=== PATIENT | female | born 1970 | race Caucasian/White ===

== ENCOUNTER 2017-08-14 17:32 | Emergency (ER) | payer OTHER, SELFPAY ==
[2017-08-14 17:49] VITALS: BP 129/82
[2017-08-14] MEDS ORDERED: Sodium Chloride 0.9% 10 ML Syringe FLUSH PRN (18:27)
[2017-08-14] MEDS ORDERED: Morphine 4 MG/ML Syringe IVPUSH PRN (18:27)
[2017-08-14] MEDS ORDERED: Sodium Chloride 0.9% 1,000 ML IV ONE (18:27)
[2017-08-14] MEDS ORDERED: Ondansetron 4 MG/2 ML SDV IVPUSH ONE (18:27)
--- NOTE | 2017-08-14 18:40 | EDM.PDOC ---
<Rajeev Cesar Jared - Last Filed: 08/14/17 19:06> ED HPI GENERAL MEDICAL PROBLEM - General Chief Complaint: Abdominal Pain Stated Complaint: VOMITING AND ABD PAIN Time Seen by Provider: 08/14/17 17:49 Source of Information: Reports: Patient History Limitations: Reports: No Limitations - History of Present Illness INITIAL COMMENTS - FREE TEXT/NARRATIVE: The patient is a 46-year-old female with a chief complaint of abdominal pain. She has a history of a gastric bypass that was done about 4 years ago. Over the past few weeks, she's had intermittent episodes of upper abdominal pain after eating. Previously, she would have vomiting and then the pain would resolve. However today the pain has been constant. The pain started this morning at around 10:30 after she ate some meatloaf for lunch. She's had multiple episodes of vomiting today, about 7 or 8 altogether. No hematemesis. She hasn't been able to tolerate liquids or solids since this morning. She continues to have upper abdominal pain that is constant and crampy. No relieving or exacerbating factors. No fever. No diarrhea. She did have a bowel movement this morning. No cough, chest pain, or shortness of breath. No urinary symptoms. Abdominal Pain Score (Numeric/FACES): 5 - Related Data Allergies Allergy/AdvReac Type Severity Reaction Status Date / Time shellfish derived Allergy Anaphylactic Verified 08/14/17 17:40 Shock ramipril [From Altace] AdvReac Arrhythmias Verified 08/14/17 17:40 Home Meds: Home Meds LORazepam [Ativan] 1 mg PO BEDTIME 12/04/14 [History] Metoprolol Tartrate 50 mg PO BID 12/04/14 [History] Lisinopril/Hctz. 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 Social & Family History - Tobacco Use Smoking Status *Q: Current Every Day Smoker Years of Tobacco use: 29 Packs/Tins Daily: 0.5 - Caffeine Use Caffeine Use: Reports: Soda - Alcohol Use Days Per Week of Alcohol Use: 0 - Recreational Drug Use Recreational Drug Use: Yes Recreational Drug Type: Reports: Marijuana/Hashish Recreational Drug Use Frequency: Not Used In Over 6 Months ED ROS GENERAL - Review of Systems Review Of Systems: See Below Constitutional: Denies: Fever HEENT: Reports: No Symptoms Respiratory: Denies: Shortness of Breath Cardiovascular: Denies: Chest Pain Endocrine: Reports: No Symptoms GI/Abdominal: Reports: Abdominal Pain, Nausea : Denies: Dysuria Musculoskeletal: Reports: No Symptoms Skin: Reports: No Symptoms Neurological: Reports: No Symptoms Psychiatric: Reports: No Symptoms Hematologic/Lymphatic: Reports: No Symptoms Immunologic: Reports: No Symptoms ED EXAM, GI/ABD - Physical Exam Exam: See Below Exam Limited By: No Limitations General Appearance: Alert, WD/WN, No Apparent Distress Eyes: Bilateral: Normal Appearance Ears: Normal External Exam Nose: Normal Inspection Throat/Mouth: Normal Inspection, Normal Voice, No Airway Compromise Head: Atraumatic, Normocephalic Neck: Normal Inspection, Supple, Non-Tender, Full Range of Motion Respiratory/Chest: No Respiratory Distress, Lungs Clear, Normal Breath Sounds, Chest Non-Tender Cardiovascular: Normal Peripheral Pulses, Regular Rate, Rhythm, No Edema, No Murmur GI/Abdominal Exam: Soft, No Distention, Other (+RUQ, epigastric, and LUQ TTP, no rebound/guarding) Back Exam: No: CVA Tenderness (L), CVA Tenderness (R) Extremities: Normal Inspection Neurological: Alert, Oriented, Normal Cognition, No Motor/Sensory Deficits Psychiatric: Normal Affect, Normal Mood Skin Exam: Warm, Dry, Intact, Normal Color, No Rash Course - Vital Signs Last Recorded V/S: Last Vital Signs Temp 36.0 C 08/14/17 17:42 Pulse 87 08/14/17 17:42 Resp 18 08/14/17 17:42 BP 129/82 08/14/17 17:42 Pulse Ox 96 08/14/17 17:42 Orthostatic Blood Pressure [ 116/79 Standing] Orthostatic Blood Pressure [ 121/81 Sitting] Orthostatic Blood Pressure [ 129/82 Supine] - Orders/Labs/Meds Orders: Active Orders 24 hr Category Date Time Status EKG 12 Lead [EKG Documentation Completion] [RC] STAT Care 08/14/17 18:26 Active Peripheral IV Care [RC] . DIRECTED Care 08/14/17 18:27 Active Abdomen 2V AP Flat Upright [CR] Stat Exams 08/14/17 18:27 Taken Morphine Med 08/14/17 18:27 Active 4 mg IVPUSH Q2H PRN Sodium Chloride 0.9% [Saline Flush] Med 08/14/17 18:27 Active 10 ml FLUSH ASDIRECTED PRN Peripheral IV Insertion Adult [OM.PC] Routine Oth 08/14/17 18:26 Ordered Medication Orders Morphine Sulfate (Morphine) 4 mg IVPUSH Q2H PRN PRN Reason: Pain Last Admin: 08/14/17 18:47 Dose: 4 mg Sodium Chloride (Saline Flush) 10 ml FLUSH ASDIRECTED PRN PRN Reason: Keep Vein Open Last Admin: 08/14/17 19:49 Dose: 10 ml Labs: Laboratory Tests 08/14/17 08/14/17 08/14/17 Range/Units 17:45 17:45 19:20 WBC 10.18 H (3.98-10.04) K/mm3 RBC 4.92 (3.98-5.22) M/mm3 Hgb 14.6 (11.2-15.7) gm/L Hct 41.7 (34.1-44.9) % MCV 84.8 (79.4-94.8) fl MCH 29.7 (25.6-32.2) pg MCHC 35.0 (32.2-35.5) g/dl RDW Std Deviation 38.7 (36.4-46.3) fL Plt Count 375 H (182-369) K/mm3 MPV 9.4 (9.4-12.3) fl Neut % (Auto) 77.0 H (34.0-71.1) % Lymph % (Auto) 15.5 L (19.3-51.7) % Will % (Auto) 6.9 (4.7-12.5) % Eos % (Auto) 0.3 L (0.7-5.8) Baso % (Auto) 0.1 (0.1-1.2) % Neut # (Auto) 7.84 H (1.56-6.13) K/mm3 Lymph # (Auto) 1.58 (1.18-3.74) K/mm3 Will # (Auto) 0.70 H (0.24-0.36) K/mm3 Eos # (Auto) 0.03 L (0.04-0.36) K/mm3 Baso # (Auto) 0.01 (0.01-0.08) K/mm3 Sodium 131 L (136-145) mEq/L Potassium 3.1 L (3.5-5.1) mEq/L Chloride 94 L (98-107) mEq/L Carbon Dioxide 28 (21-32) mEq/L Anion Gap 12.1 (5-15) BUN 11 (7-18) mg/dL Creatinine 0.8 (0.55-1.02) mg/dL Est Cr Clr Drug Dosing 81.38 mL/min Estimated GFR (MDRD) > 60 (>60) mL/min BUN/Creatinine Ratio 13.8 L (14-18) Glucose 135 H (74-106) mg/dL Calcium 9.1 (8.5-10.1) mg/dL Total Bilirubin 1.4 H (0.2-1.0) mg/dL AST 880 H (15-37) U/L ALT 455 H (14-59) U/L Alkaline Phosphatase 241 H (46-116) U/L Troponin I < 0.017 (0.00-0.056) ng/mL Total Protein 7.7 (6.4-8.2) g/dl Albumin 3.8 (3.4-5.0) g/dl Globulin 3.9 gm/dL Albumin/Globulin Ratio 1.0 (1-2) Lipase 139 (73-393) U/L Urine Color Yellow (Yellow) Urine Appearance Slt cloudy H (Clear) Urine pH 6.5 (5.0-8.0) Ur Specific Hudson 1.020 (1.005-1.030) Urine Protein 1+ H (Negative) Urine Glucose (UA) Negative (Negative) Urine Ketones Negative (Negative) Urine Occult Blood Negative (Negative) Urine Nitrite Negative (Negative) Urine Bilirubin 1+ H (Negative) Urine Urobilinogen 4.0 H (0.2-1.0) Ur Leukocyte Esterase Negative (Negative) Urine RBC 0-5 (0-5) /hpf Urine WBC 0-5 (0-5) /hpf Ur Epithelial Cells 5-10 H (0-5) /hpf Urine Bacteria Moderate H (FEW) /hpf Urine Mucus Few (FEW) /hpf Meds: Medications Generic Name Dose Route Start Last Admin Trade Name Freq PRN Reason Stop Dose Admin Morphine Sulfate 4 mg 08/14/17 18:27 08/14/17 18:47 Morphine IVPUSH 4 mg Q2H PRN Administration Pain Sodium Chloride 10 ml 08/14/17 18:27 08/14/17 19:49 Saline Flush FLUSH 10 ml ASDIRECTED PRN Administration Keep Vein Open Discontinued Medications Generic Name Dose Route Start Last Admin Trade Name Freq PRN Reason Stop Dose Admin Sodium Chloride 1,000 mls @ 1,000 mls/hr 08/14/17 18:27 08/14/17 18:47 Normal Saline IV 08/14/17 19:26 1,000 mls/hr ONETIME ONE Administration Potassium Chloride 10 meq/ 100 mls @ 100 mls/hr 08/14/17 19:18 08/14/17 19:48 Premix IV 08/14/17 20:17 100 mls/hr ONETIME STA Administration Ondansetron HCl 4 mg 08/14/17 18:27 08/14/17 18:47 Zofran IVPUSH 08/14/17 18:28 4 mg ONETIME ONE Administration - Re-Assessments/Exams Free Text/Narrative Re-Assessment/Exam: 08/14/17 18:39 Differential includes biliary disease, pancreatitis, obstruction, severe gastritis. Labs, x-ray, and ultrasound are pending. EKG shows normal sinus rhythm, no significant ST abnormality, T-wave inversions leads 3 and aVF, no prior available for comparison. Pain meds, Zofran, and IV fluid ordered. Patient will be signed out to Dr. Curry pending laboratory results and radiology results. 08/14/17 19:06 XR abd shows nonobstructive gas pattern. Labs show mildly elevated WBC at 11, and a transaminitis and mildly elevated bilirubin. RUQ U/S pending. Departure - Departure Disposition: Home, Self-Care 01 Clinical Impression: Acute cholecystitis - Discharge Information Referrals: Paige Singer MD [Primary Care Provider] - Jared Rios MD [Physician] - Forms: ED Department Discharge Additional Instructions: You were seen in the emergency room for upper abdominal pain, nausea, and vomiting. Workup in the ER included blood work, a urinalysis, an ECG, upright abdominal x- rays, and an ultrasound of your upper right abdomen. Based on your workup, your symptoms are MOST LIKELY due to a gallstone that is intermittently plugging your common bile duct. Your potassium was also found to be slightly low at 3.1. It is most important that you avoid fats, grease, and oils. Eating these will cause you to have abdominal pain. Stay well hydrated. Gatorade or Powerade are best. These drinks will also help replenish your potassium level. If you should have pain despite avoidance of fats, you may take 1-2 tablets of the narcotic pain reliever Jerusalem, up to every 8 hours, as needed. If you take Jerusalem, you may not drive for 10 hours afterwards. Jerusalem will likely cause constipation and nausea/vomiting. You may also dissolve one tablet of the anti-nausea medicine Zofran on your tongue up to every 8 hours, as needed for nausea/vomiting. Follow-up with the Surgeon Dr. Jared Rios this coming 08/17/2017, to arrange for an elective cholecystectomy (removal of your gallbladder). If any other problems, please do not hesitate to return to the ER. <Fei Curry - Last Filed: 08/14/17 21:54> Course - Re-Assessments/Exams Free Text/Narrative Re-Assessment/Exam: 08/14/17 19:14 Two-view AP flat and upright radiographs appear to demonstrate a nonspecific bowel gas pattern. Surgical clips are noticed in the epigastrium and left upper quadrant. A phlebolith is noticed in the left pelvis. Formal read per the Radiologist pending. 08/14/17 20:43 The patient's urinalysis is consistent with contamination. 08/14/17 21:29 Ultrasound of the right upper quadrant is read by Dr. Bueno as: 1. Gallstones within the gallbladder. Gallbladder wall is thickened but uncertain if this is real as the gallbladder is not well-distended. 2. Common bile duct is mildly dilated. Etiology for this finding not seen. CBD not seen in its entirety due to bowel gas. 3. No additional abnormality is appreciated. 08/14/17 21:[address] Rios at 21:32. He believes there is enough evidence to proceed with an elective cholecystectomy, however, not on a weekend. We will discharge the patient home with a prescription for pain medication, recommend avoidance of fatty foods, and she can follow-up with him this coming Thursday, . 08/14/17 21:42 The above was discussed with the patient. Her pain is minimal at this time. She will be discharged home with prescriptions for Jerusalem and Zofran via [facility]. Departure - Departure Time of Disposition: 21:42 Condition: Good
[2017-08-14] MEDS ORDERED: Potassium Chloride 10 MEQ in Premix Bag 1 BAG IV STA (19:18)
--- NOTE | 2017-08-14 21:02 | US ---
Limited abdominal ultrasound: Multiple real-time images of the upper right abdomen were obtained. Comparison: No prior ultrasound exam, prior CT study of 06/01/12 is available. Liver shows no focal parenchymal abnormality. Gallbladder not well distended. Gallstones are seen within the gallbladder. Gallbladder wall is thickened although uncertain if this is a real finding is the gallbladder is not well distended. No pericholecystic fluid is seen. Common bile duct is mildly dilated 1.1 cm. Etiology of the dilated duct is not appreciated on this study. Right kidney shows no hydronephrosis or mass. Pancreas is not completely seen. Visualized portions of the pancreas are unremarkable. Impression: 1. Gallstones within the gallbladder. Gallbladder wall is thickened but uncertain if this is real as the gallbladder is not well distended. 2. Common bile duct is mildly dilated. Etiology for this finding not seen. CBD not seen in its entirety due to bowel gas. 3. No additional abnormality is appreciated. Diagnostic code #3
--- NOTE | 2017-08-16 12:00 | CR ---
Abdomen: Supine and upright views of the abdomen were obtained. Comparison: No prior abdominal imaging. Bowel gas pattern appears within normal limits. Surgical clip is seen near the gastroesophageal junction as well as surgical clips within the left upper abdomen. Calcification is noted within the left side of the pelvis most likely due to large phlebolith. Bony structures appear within normal limits. Minimal scoliosis is noted. No free air is seen. Impression: 1. Incidental findings. Diagnostic code #2
== END 2017-08-14 22:01 | disposition home or self-care (01) ==
LOC: JD.ED 17:32
DX: K81.0 Acute cholecystitis (principal); F17.210 Nicotine dependence, cigarettes, uncomplicated; Z91.013 Allergy to seafood; Z88.8 Allergy status to other drugs, medicaments and biological substances; Z79.899 Other long term (current) drug therapy
CPT/HCPCS: 36415; 74020; 76705; 80053; 81001; 83690; 84484; 85025; 93005; 96361; 96365; 96375; 99285; J2270; J2405; J3480; J7040; J7050; 99284

== ENCOUNTER 2017-08-19 09:58 | Day surgery (SDC) | payer OTHER, SELFPAY ==
[~2017-08-19 09:58] MED LIST: Dexamethasone 4 MG/ML 5 ML MDV ONE; HYDROmorphone 1 MG/ML Syringe ONE; Ketorolac 30 MG/ML SDV ONE; Lactated Ringers 1,000 ML ONE; Lidocaine 1% 4 ML ONE; Lidocaine 1%/Sod Bicarbonate in NS 8.4% 1 ML Syringe IV PRN; Midazolam 1 MG/ML 2 ML SDV ONE; Ondansetron 4 MG/2 ML SDV ONE; Propofol 200 MG/20 ML SDV ONE; Rocuronium 50 MG/5 ML Vial ONE; Sodium Chloride 0.9% 10 ML Syringe FLUSH PRN; ceFAZolin 1 GM Vial ONE; fentaNYL 250 MCG/5 ML SDV ONE
[2017-08-19] MEDS: Lactated Ringers 1,000 ML IV SCH ×2 (10:25→12:05)
[2017-08-19] MEDS ORDERED: Lidocaine 1% with EPINEPHrine 1:100,000 20 ML MDV ONE (11:08)
[2017-08-19] MEDS ORDERED: Bupivacaine 0.5%/EPINEPHrine 1:200,000 50 ML MDV ONE (11:08)
--- NOTE | 2017-08-19 12:30 | PCM.PREANE ---
Preanesthetic Assessment - Anesthesia/Transfusion/Family Hx Anesthesia History: Prior Anesthesia Without Reaction Family History of Anesthesia Reaction: No Transfusion History: No Prior Transfusion(s) Intubation History: Unknown - Review of Systems General: No Symptoms, Fatigue, Appetite Pulmonary: No Symptoms (RASHAD no CPAP, smoking less 1 pack time 25 years) Cardiovascular: No Symptoms (HTN), Dyspnea on Exertion Gastrointestinal: No Symptoms (GERD/ history of gastric bypass), Decreased Appetite Neurological: Headache (History of migraines and brain surgery benign brain tumor/acromegaly), Tingling (left shoulder / arm due to laying on that side) Other: Reports: Thyroid Problems (hypothyroid), Neck Pain (February neck pain but improving), Depression, Anxiety - Physical Assessment NPO Status Date: 08/19/17 NPO Status Time: 07:15 Pulse: 76 O2 Sat by Pulse Oximetry: 95 Respiratory Rate: 18 Blood Pressure: 126/86 Temperature: 37.1 C Vital Signs: Last Vital Signs Temp 37.1 C 08/19/17 10:05 Pulse 76 08/19/17 10:05 Resp 18 08/19/17 10:05 BP 126/86 08/19/17 10:05 Pulse Ox 95 08/19/17 10:05 Height: 1.68 m Weight: 89.358 kg ASA Class: 3 Mental Status: Alert & Oriented x3 Airway Class: Mallampati = 3 Dentition: Reports: Dentures (upper), Partial (bottom) Thyro-Mental Finger Breadths: 3 Mouth Opening Finger Breadths: 3 ROM/Head Extension: Full Lungs: Clear to Auscultation, Normal Respiratory Effort Cardiovascular: Regular Rate, Regular Rhythm, No Murmurs - Lab Values: Laboratory Last Values Sodium 136 mEq/L (136-145) 08/19/17 10:25 Potassium 3.3 mEq/L (3.5-5.1) L 08/19/17 10:25 Chloride 96 mEq/L (98-107) L 08/19/17 10:25 Carbon Dioxide 28 mEq/L (21-32) 08/19/17 10:25 Anion Gap 15.3 (5-15) H 08/19/17 10:25 BUN 12 mg/dL (7-18) 08/19/17 10:25 Creatinine 0.8 mg/dL (0.55-1.02) 08/19/17 10:25 Est Cr Clr Drug Dosing 81.38 mL/min 08/19/17 10:25 Estimated GFR (MDRD) > 60 mL/min (>60) 08/19/17 10:25 BUN/Creatinine Ratio 15.0 (14-18) 08/19/17 10:25 Glucose 101 mg/dL (74-106) 08/19/17 10:25 Calcium 9.4 mg/dL (8.5-10.1) 08/19/17 10:25 Total Bilirubin 1.1 mg/dL (0.2-1.0) H 08/19/17 10:25 AST 107 U/L (15-37) H 08/19/17 10:25 ALT 223 U/L (14-59) H 08/19/17 10:25 Alkaline Phosphatase 377 U/L (46-116) H 08/19/17 10:25 Total Protein 7.9 g/dl (6.4-8.2) 08/19/17 10:25 Albumin 3.9 g/dl (3.4-5.0) 08/19/17 10:25 Globulin 4.0 gm/dL 08/19/17 10:25 Albumin/Globulin Ratio 1.0 (1-2) 08/19/17 10:25 Above labs reviewed and noted. - Imaging/EKG Impressions: EKG: No acute changes with no evidence of acute STEMI, or injury. SR 81, old anteroseptal infarct. - Allergies Allergies/Adverse Reactions: Allergies Allergy/AdvReac Type Severity Reaction Status Date / Time shellfish derived Allergy Anaphylactic Verified 08/14/17 17:40 Shock ramipril [From Altace] AdvReac Arrhythmias Verified 08/14/17 17:40 - Anesthesia Plan Beta Leslie: Metoprolol Med Last Dose Date: 08/19/17 Med Last Dose Time: 07:15 - Acknowledgements Anesthesia Type Planned: General Anesthesia Pt an Appropriate Candidate for the Planned Anesthesia: Yes Alternatives and Risks of Anesthesia Discussed w Pt/Guardian: Yes Pt/Guardian Understands and Agrees with Anesthesia Plan: Yes PreAnesthesia Questionnaire Cardiovascular History: Reports: High Cholesterol, 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: Psychiatric History: Reports: Anxiety - Past Surgical History GI Surgical History: Reports: Bariatric Procedure Endocrine Surgical History: Reports: Pituitary Tumor Resection, Other (See Below ) Other Endocrine Surgeries/Procedures: 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 - SUBSTANCE USE Smoking Status *Q: Current Every Day Smoker Tobacco Use Within Last Twelve Months: Cigarettes Days Per Week of Alcohol Use: 0 Recreational Drug Use History: Yes Recreational Drug Type: Reports: Marijuana/Hashish - HOME MEDS Home Medications: Home Meds LORazepam [Ativan] 1 mg PO BID PRN 12/04/14 [History] Metoprolol Tartrate 100 mg PO BID 12/04/14 [History] Simvastatin [Zocor] 10 mg PO BEDTIME 08/14/17 [History] Hydrocodone/Acetaminophen [Hydrocodon-Acetaminophen 5-325] 1 - 2 tab PO Q4HR PRN 08/19/17 [History] Lisinopril/Hydrochlorothiazide [Lisinopril-Hctz 20-12.5 mg Tab] 1 tab PO BID [History] valACYclovir [Valtrex] 4 tab PO BID PRN 08/19/17 [History] - CURRENT (IN HOUSE) MEDS Current Meds: Current Medications Lactated Ringer's (Ringers, Lactated) 1,000 mls @ 125 mls/hr IV ASDIRECTED RODGER Last Admin: 08/19/17 12:05 Dose: 125 mls/hr Lidocaine/Sodium Bicarbonate (Buffered Lidocaine 1% In Ns 8.4%) 0.25 ml IV ONETIME PRN PRN Reason: Prior to IV Start Last Admin: 08/19/17 10:25 Dose: 0.25 ml Sodium Chloride (Saline Flush) 10 ml FLUSH ASDIRECTED PRN PRN Reason: Keep Vein Open Discontinued Medications Bupivacaine HCl/Epinephrine Bitart (Marcaine 0.5%/Epinephrine 1:200,000) Confirm Administered Dose 50 ml .ROUTE .STK-MED ONE Stop: 08/19/17 11:09 Cefazolin Sodium (Ancef) Confirm Administered Dose 2 gm .ROUTE .STK-MED ONE Stop: 08/19/17 07:27 Dexamethasone (Dexamethasone) Confirm Administered Dose 20 mg .ROUTE .STK-MED ONE Stop: 08/19/17 07:27 Fentanyl (Sublimaze) Confirm Administered Dose 250 mcg .ROUTE .STK-MED ONE Stop: 08/19/17 07:28 Hydromorphone HCl (Dilaudid) Confirm Administered Dose 1 mg .ROUTE .STK-MED ONE Stop: 08/19/17 07:27 Lidocaine HCl (Xylocaine-Mpf 1%) Confirm Administered Dose 4 mls @ as directed .ROUTE .ST-MED ONE Stop: 08/19/17 07:27 Lactated Ringer's (Ringers, Lactated) Confirm Administered Dose 1,000 mls @ as directed .ROUTE .STK-MED ONE Stop: 08/19/17 07:27 Ketorolac Tromethamine (Toradol) Confirm Administered Dose 30 mg .ROUTE .ST- MED ONE Stop: 08/19/17 07:27 Lidocaine/Epinephrine (Xylocaine 1% With Epinephrine 1:100,000) Confirm Administered Dose 20 ml .ROUTE .ST-MED ONE Stop: 08/19/17 11:09 Midazolam HCl (Versed 1 Mg/Ml) Confirm Administered Dose 2 mg .ROUTE .ST-MED ONE Stop: 08/19/17 07:28 Ondansetron HCl (Zofran) Confirm Administered Dose 4 mg .ROUTE .ST-MED ONE Stop: 08/19/17 07:27 Propofol (Diprivan 20 Ml) Confirm Administered Dose 200 mg .ROUTE .STK-MED ONE Stop: 08/19/17 07:28 Rocuronium [place] (Zemuron) Confirm Administered Dose 50 mg .ROUTE .ST-MED ONE Stop: 08/19/17 07:27
[2017-08-19] MEDS ORDERED: ePHEDrine 50 MG/ML SDV IVPUSH PRN (12:59)
[2017-08-19] MEDS ORDERED: HYDROmorphone 0.5 MG/0.5 ML Syringe IVPUSH PRN (12:59)
[2017-08-19] MEDS ORDERED: Ondansetron 4 MG/2 ML SDV IVPUSH PRN (12:59)
[2017-08-19] MEDS ORDERED: Midazolam 1 MG/ML 2 ML SDV IVPUSH PRN (12:59)
[2017-08-19] MEDS ORDERED: Phenylephrine 1 MG in Sodium Chloride 0.9% 10 ML IV SCH (13:00)
[2017-08-19] MEDS ORDERED: Phenylephrine/Normal Saline 100 MCG/ML 10 ML Syringe ONE (13:17)
[2017-08-19] MEDS: Potassium Chloride 10 MEQ in Premix Bag 1 BAG IV SCH ×2 (13:31→14:50)
[2017-08-19] MEDS ORDERED: Neostigmine Methylsulfate 1 MG/ML 5 ML Syringe ONE (14:13)
--- NOTE | 2017-08-19 14:38 | PCM.OPNOTE ---
- General Post-Op/Procedure Note Date of Surgery/Procedure: 08/19/17 Operative Procedure(s): Laparoscopic cholecystectomy Findings: Chronically inflamed gallbladder with multiple cholesterol type gallstones and a dilated cystic duct Pre Op Diagnosis: Cholecystitis secondary to cholelithiasis Post-Op Diagnosis: Same Anesthesia Technique: General ET Tube, Local Primary Surgeon: Levy Gonzales Pathology: Gallbladder with stones EBL in mLs: 5 Complications: None Condition: Good Free Text/Narrative:: After adequate general endotracheal tube anesthesia was obtained the patient was monitored and her abdomen prepped and draped for a cholecystectomy. A supraumbilical incision was made after local analgesia was given with a 15 blade down to the midline. This structure was opened with a 15 blade entering the abdomen under direct vision. A 12 mm camera port was inserted. CO2 pneumoperitoneum was obtained. 3--5 mm working ports were placed along the right subcostal margin after local analgesia. There were adhesions between the gallbladder and the greater omentum. The gallbladder was distended and I had to aspirate it of its contents which contained green bile. There was no pus. I grasped the dome of the gallbladder and retracted it and a liver in a cephalad direction. I used the cautery to remove the adhesions between the omentum and the body of the gallbladder. The gallbladder was indurated. There was a 1 cm lymph node overlying calot's triangle which I dissected away. I used a combination of cautery and suction dissector to identify the structures in calot 's triangle. I used the linear stapler to fire across the dilated cystic duct and ampulla. I then took the gallbladder down in a retrograde fashion with cautery. The gallbladder was placed in the specimen bag and removed through the umbilicus. I opened The gallbladder on the back table and itcontained yellow gallstones and no common bile duct. I irrigated out the gallbladder bed with saline. There was no obvious bile duct leak. CO2 pneumoperitoneum was completely released at the umbilicus and then I closed this area with a figure- of-eight 0 Vicryl. The subcutaneous tissues and skin were closed with Vicryl as well. Steri-Strips and gauze were used for the dressing. There were no procedural complications. Speech And Language Clinician photographs were taken for the patient and for the medical record. The patient was taken extubated to the recovery area in stable condition.
[2017-08-19] MEDS: fentaNYL 100 MCG/2 ML SDV IVPUSH PRN ×2 (14:43→15:25)
--- NOTE | 2017-08-19 14:46 | PCM.POSTAN ---
POST ANESTHESIA ASSESSMENT - MENTAL STATUS Mental Status: Alert - VITAL SIGNS Pulse Rate: 102 SaO2: 94 Resp Rate: 11 Blood Pressure: 134/78 Temperature: 36.1 C - RESPIRATORY Respiratory Status: Respiratory Rate WNL, Airway Patent, O2 Saturation Stable, Supplemental Oxygen - CARDIOVASCULAR CV Status: Pulse Rate WNL, Blood Pressure Stable - GASTROINTESTINAL GI Status: No Symptoms - POST OP HYDRATION Hydration Status: Adequate & Stable
[2017-08-19] MEDS ORDERED: Potassium Chloride 20 MEQ Tab.ER PO ONE (15:00)
--- NOTE | 2017-08-19 15:43 | PCM48HPAN ---
Post Anesthesia Note - EVALUATION WITHIN 48HRS OF ANESTHETIC Vital Signs in Normal Range: Yes Patient Participated in Evaluation: Yes Respiratory Function Stable: Yes Airway Patent: Yes Cardiovascular Function Stable: Yes Hydration Status Stable: Yes Pain Control Satisfactory: Yes Nausea and Vomiting Control Satisfactory: Yes Mental Status Recovered: Yes
[2017-08-19] MEDS ORDERED: Ketorolac 30 MG/ML SDV IM ONE (17:15)
[2017-08-19] MEDS ORDERED: HYDROmorphone 1 MG/ML Syringe IVPUSH ONE (17:16)
[2017-08-19 19:58] VITALS: BP 142/86
== END 2017-08-19 19:16 | disposition home or self-care (01) ==
LOC: JD.SDS 09:58
PROVIDERS: ATTEND Surgery
DX: K80.10 Calculus of gallbladder with chronic cholecystitis without obstruction (principal); I10 Essential (primary) hypertension; E78.00 Pure hypercholesterolemia, unspecified; F41.9 Anxiety disorder, unspecified; G47.33 Obstructive sleep apnea (adult) (pediatric); Z98.84 Bariatric surgery status; Z98.890 Other specified postprocedural states; F17.210 Nicotine dependence, cigarettes, uncomplicated; Z91.013 Allergy to seafood; Z88.8 Allergy status to other drugs, medicaments and biological substances; Z79.899 Other long term (current) drug therapy
CPT/HCPCS: 36415; 47562; 80053; 84132; A9270; J0690; J1100; J1170; J1885; J2250; J2405; J2710; J3010; J3480; J7120; 00790; J2704

== ENCOUNTER 2017-10-07 08:51 | Emergency (ER) | payer OTHER ==
[2017-10-07] MEDS ORDERED: Sodium Chloride 0.9% 10 ML Syringe FLUSH PRN (09:34)
[2017-10-07] MEDS ORDERED: HYDROmorphone 0.5 MG/0.5 ML Syringe IVPUSH STA (10:16)
[2017-10-07] MEDS ORDERED: HYDROmorphone 0.5 MG/0.5 ML Syringe IVPUSH ONE (11:52)
--- NOTE | 2017-10-07 11:58 | EDM.PDOC ---
ED HPI GENERAL MEDICAL PROBLEM - General Chief Complaint: Lower Extremity Injury/Pain Stated Complaint: [facility] Time Seen by Provider: 10/07/17 09:34 Source of Information: Reports: Patient, RN Notes Reviewed - History of Present Illness INITIAL COMMENTS - FREE TEXT/NARRATIVE: 46 year old female slipped on ice, came down hard on R knee. Severe R knee pain, unable to extend knee or bear wt, no other pain or injury. Right Knee Pain Score (Numeric/FACES): 8 - Related Data Allergies Allergy/AdvReac Type Severity Reaction Status Date / Time shellfish derived Allergy Anaphylactic Verified 10/07/17 15:17 Shock ramipril [From Altace] AdvReac Arrhythmias Verified 10/07/17 15:17 Home Meds: Home Meds LORazepam [Ativan] 1 mg PO BEDTIME PRN 12/04/14 [History] Metoprolol Tartrate 100 mg PO BID 12/04/14 [History] Simvastatin [Zocor] 10 mg PO BEDTIME 08/14/17 [History] Lisinopril/Hydrochlorothiazide [Lisinopril-Hctz 20-12.5 mg Tab] 1 tab PO BID [History] Cephalexin [Keflex] 500 mg PO TID 10/07/17 [History] Cyclobenzaprine [Flexeril] 10 mg PO ASDIRECTED 10/08/17 [History] Morphine Sulfate [Morphine Sulfate ER] 15 mg PO ASDIRECTED 10/08/17 [History] Sertraline [Zoloft] mg PO DAILY 10/08/17 [History] oxyCODONE HCl/Acetaminophen [oxyCODONE-Acetaminophen 5-325] 1 - 2 tab PO ASDIRECTED PRN 10/08/17 [History] Past Medical History Cardiovascular History: Reports: High Cholesterol, Hypertension 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: Psychiatric History: Reports: Anxiety - Past Surgical History GI Surgical History: Reports: Bariatric Procedure, Cholecystectomy Endocrine Surgical History: Reports: Pituitary Tumor Resection, Other (See Below ) Other Endocrine Surgeries/Procedures: 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 Social & Family History - Tobacco Use Smoking Status *Q: Current Every Day Smoker Years of Tobacco use: 15 Packs/Tins Daily: 0.5 - Caffeine Use Caffeine Use: Reports: Coffee - Alcohol Use Days Per Week of Alcohol Use: 0 - Recreational Drug Use Recreational Drug Use: No Recreational Drug Type: Reports: Marijuana/Hashish Recreational Drug Use Frequency: Not Used In Over 6 Months Review of Systems - Review of Systems Review Of Systems: See Below Constitutional: Reports: No Symptoms Eyes: Reports: No Symptoms Ears: Reports: No Symptoms Nose: Reports: No Symptoms Mouth/Throat: Reports: No Symptoms Respiratory: Denies: Shortness of Breath, Pleuritic Chest Pain Cardiovascular: Denies: Chest Pain GI/Abdominal: Denies: Abdominal Pain, Nausea, Vomiting Musculoskeletal: Reports: Joint Pain (severe pain R ant knee). Denies: Neck Pain, Arm Pain, Back Pain, Hand Pain Skin: Reports: No Symptoms Neurological: Reports: Trouble Speaking, Difficulty Walking. Denies: Numbness, Tingling, Weakness ED EXAM, GENERAL - Physical Exam Exam: See Below General Appearance: Alert, Moderate Distress Eye Exam: Bilateral Eye: PERRL Ears: Normal External Exam Nose: Normal Inspection Throat/Mouth: Normal Inspection Head: Atraumatic. No: Facial Swelling Neck: Supple, Full Range of Motion Respiratory/Chest: No Respiratory Distress, Lungs Clear, Normal Breath Sounds Cardiovascular: Regular Rate, Rhythm Back Exam: No: CVA Tenderness (L), CVA Tenderness (R), Paraspinal Tenderness, Vertebral Tenderness Extremities: Normal Inspection Neurological: Alert, Oriented Skin Exam: Warm, Dry, Normal Color Course - Vital Signs Last Recorded V/S: Last Vital Signs Temp 97 F 10/07/17 08:58 Pulse 85 10/07/17 13:23 Resp 16 10/07/17 13:23 BP 143/87 H 10/07/17 13:23 Pulse Ox 98 10/07/17 13:23 - Orders/Labs/Meds Labs: Laboratory Tests 10/07/17 10/07/17 Range/Units 12:09 12:09 WBC 9.34 (3.98-10.04) K/mm3 RBC 4.66 (3.98-5.22) M/mm3 Hgb 13.9 (11.2-15.7) gm/L Hct 40.5 (34.1-44.9) % MCV 86.9 (79.4-94.8) fl MCH 29.8 (25.6-32.2) pg MCHC 34.3 (32.2-35.5) g/dl RDW Std Deviation 40.7 (36.4-46.3) fL Plt Count 343 (182-369) K/mm3 MPV 9.3 L (9.4-12.3) fl Neut % (Auto) 65.2 (34.0-71.1) % Lymph % (Auto) 26.9 (19.3-51.7) % [place] % (Auto) 6.6 (4.7-12.5) % Eos % (Auto) 0.6 L (0.7-5.8) Baso % (Auto) 0.4 (0.1-1.2) % Neut # (Auto) 6.08 (1.56-6.13) K/mm3 Lymph # (Auto) 2.51 (1.18-3.74) K/mm3 [place] # (Auto) 0.62 H (0.24-0.36) K/mm3 Eos # (Auto) 0.06 (0.04-0.36) K/mm3 Baso # (Auto) 0.04 (0.01-0.08) K/mm3 Sodium 138 (136-145) mEq/L Potassium 3.8 (3.5-5.1) mEq/L Chloride 103 (98-107) mEq/L Carbon Dioxide 27 (21-32) mEq/L Anion Gap 11.8 (5-15) BUN 10 (7-18) mg/dL Creatinine 0.6 (0.55-1.02) mg/dL Est Cr Clr Drug Dosing 108.51 mL/min Estimated GFR (MDRD) > 60 (>60) mL/min BUN/Creatinine Ratio 16.7 (14-18) Glucose 111 H (74-106) mg/dL Calcium 9.2 (8.5-10.1) mg/dL Total Bilirubin 0.3 (0.2-1.0) mg/dL AST 24 (15-37) U/L ALT 33 (14-59) U/L Alkaline Phosphatase 123 H (46-116) U/L Total Protein 7.3 (6.4-8.2) g/dl Albumin 3.6 (3.4-5.0) g/dl Globulin 3.7 gm/dL Albumin/Globulin Ratio 1.0 (1-2) Meds: Medications Discontinued Medications Generic Name Dose Route Start Last Admin Trade Name Freq PRN Reason Stop Dose Admin Hydromorphone HCl 0.5 mg 10/07/17 10:16 10/07/17 10:30 Dilaudid IVPUSH 10/07/17 10:17 0.5 mg ONETIME STA Administration Hydromorphone HCl 0.5 mg 10/07/17 11:52 10/07/17 11:56 Dilaudid IVPUSH 10/07/17 11:53 0.5 mg ONETIME ONE Administration Sodium Chloride 10 ml 10/07/17 09:34 10/07/17 09:58 Saline Flush FLUSH 10 ml ASDIRECTED PRN Administration Keep Vein Open - Re-Assessments/Exams Free Text/Narrative Re-Assessment/Exam: 10/07/17 11:53 Patient has transverse fracture of right patella with significant separation. Have discussed with Dr. Tang, Orthopedist. He will see her at the clinic in about an hour. He will plan to do surgery tomorrow. Departure - Departure Time of Disposition: 11:52 Disposition: Home, Self-Care 01 Condition: Fair Clinical Impression: Patellar fracture Qualifiers: Encounter type: initial encounter Fracture type: closed Fracture morphology: transverse Fracture alignment: displaced Laterality: right Qualified Code(s): S82.031A - Displaced transverse fracture of right patella, initial encounter for closed fracture - Discharge Information Instructions: Knee Fracture, Adult Referrals: Ginny Roberts, [facility]PER[facility] [Primary Care Provider] - Forms: ED Department Discharge Additional Instructions: Isiah wrap, knee immobilizer, crutches, ice packs and elevation as needed for swelling, Tylenol for mild to moderate discomfort or Percocet if needed for severe pain. Do not take Tylenol and Percocet same time. See Dr. Lopez, Orthopedist today at his clinic at about 1245. He will plan to do surgery tomorrow. Our staff will help you get over to his office.
--- NOTE | 2017-10-07 12:21 | CR ---
Right knee: Four views of the right knee were obtained. Distracted patellar fracture is seen which is slightly comminuted. Medial and lateral joint compartments are maintained in height. Soft tissue swelling is seen. Joint effusion is seen. Impression: 1. Distracted patellar fracture showing slight comminution. 2. Soft tissue swelling and joint effusion. Diagnostic code #3
[2017-10-07 13:26] VITALS: BP 143/87
== END 2017-10-07 12:30 | disposition home or self-care (01) ==
LOC: JD.ED 08:51
DX: S82.031A Displaced transverse fracture of right patella, initial encounter for closed fracture (principal); E78.00 Pure hypercholesterolemia, unspecified; I10 Essential (primary) hypertension; F17.210 Nicotine dependence, cigarettes, uncomplicated; Z91.013 Allergy to seafood; Z88.8 Allergy status to other drugs, medicaments and biological substances; Z79.899 Other long term (current) drug therapy; W00.0XXA Fall on same level due to ice and snow, initial encounter; Z01.812 Encounter for preprocedural laboratory examination; S82.009A Unspecified fracture of unspecified patella, initial encounter for closed fracture
CPT/HCPCS: 36415; 73564; 80053; 85025; 87641; 93005; 96374; 96376; 99285; J1170; J7050; 99284

== ENCOUNTER → 2017-10-08 | Day surgery (SDC) | payer OTHER ==
[~2017-10-08] MED LIST changes: +Bupivacaine 0.5%/EPINEPHrine 1:200,000 50 ML MDV ONE; +Cyclobenzaprine 10 MG Tab PO PRN; +HYDROmorphone 0.5 MG/0.5 ML Syringe IVPUSH PRN; +Ketamine 500 mg/10 ML MDV ONE; +Ketorolac 30 MG/ML SDV IVPUSH PRN; -Ketorolac 30 MG/ML SDV ONE; +Meperidine PF 50 MG/ML Syringe IVPUSH PRN; +Morphine 15 MG Tab.ER PO SCH; +Neostigmine Methylsulfate 1 MG/ML 5 ML Syringe ONE; +Nicotine 14 MG/24 Hr Patch TRDERM ONE; +Ondansetron 4 MG/2 ML SDV IVPUSH PRN; +diphenhydrAMINE 50 MG/ML SDV IVPUSH PRN; +ePHEDrine/Normal Saline 25 MG/5 ML Syringe ONE; +fentaNYL 100 MCG/2 ML SDV IVPUSH PRN; +fentaNYL 100 MCG/2 ML SDV ONE
--- NOTE | 2017-10-08 06:36 | HP ---
DATE OF ADMISSION: 10/08/2017 HISTORY OF PRESENT ILLNESS: This is the first orthopedic outpatient admission for surgery for this 46-year- old female who suffered acute fall on the ice at work with injury to her right knee. She presented to the emergency room, had x-rays taken, found to have a fracture of patella, was placed in an immobilizer and then taken to the orthopedic office and clinic for evaluation. After evaluation, the patient was found to have displaced fracture of the patella, which will require surgical reduction and fixation. She notes no other injuries at the time of the accident. Had no previous history of right knee injury. The procedure has been outlined to her. She understands the procedure and has consented to it. ALLERGIES: To Altace and shellfish. CURRENT MEDICATIONS: Keflex 500 mg, metoprolol, Zocor, lisinopril, hydrochlorothiazide, and Zoloft. PAST MEDICAL HISTORY: The medical problems include; the patient with high blood pressure, has a history of increased cholesterol, has anxiety problems, and currently on a Keflex treatment program for previous abscess of the right axilla. PAST SURGICAL HISTORY: The patient has surgery history positive. She has had previous pituitary adenoma surgery. Also, she had gallbladder surgery recently on 08/20/2017. Noted no anesthesia complications or problems. Bleeding history is negative. Blood clot history is negative. SOCIAL HISTORY: Tobacco, the patient is a [id number]-day smoker. She is a non-alcohol user. PHYSICAL EXAMINATION: GENERAL: Today reveals a well-developed and well-nourished 46-year-old female in severe distress. HEAD, EYES, EARS, NOSE, AND THROAT: Normocephalic. NECK: Supple. CHEST: Clear. Her right axilla, the area of abscess formation is healing very well. No erythema or any indication of a draining-type open wound was noted. ABDOMEN: Soft. : Intact. MUSCULOSKELETAL: Examination of the right knee reveals severe pain to pressure palpation of the anterior portion of the right knee, over the patella, with positive deformity and swelling. Skin is intact. RADIOLOGY: X-ray review shows a displaced fracture, right patella. PLAN: The plan is for the patient to undergo open reduction and internal fixation of the right patellar fracture. Procedure has been outlined to her. She understands risks and complications involved with it and has consented to surgery. MMODAL /[id number]
[2017-10-08] MEDS: Lactated Ringers 1,000 ML IV SCH ×2 (07:10→13:09)
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
--- NOTE | 2017-10-08 10:08 | PCM.POSTAN ---
POST ANESTHESIA ASSESSMENT - MENTAL STATUS Mental Status: Alert, Oriented - VITAL SIGNS Pulse Rate: 97 SaO2: 92 Resp Rate: 16 Blood Pressure: 109/62 Temperature: 37.1 C - RESPIRATORY Respiratory Status: Respiratory Rate WNL, Airway Patent, O2 Saturation Stable, Supplemental Oxygen - CARDIOVASCULAR CV Status: Pulse Rate WNL, Blood Pressure Stable - GASTROINTESTINAL GI Status: No Symptoms - PAIN Pain Score: 0 - POST OP HYDRATION Hydration Status: Adequate & Stable
--- NOTE | 2017-10-08 12:46 | CR ---
Right knee: Multiple fluoroscopic spot views were obtained of the right knee utilizing C-arm device. Comparison: Previous right knee exam of 10/07/17. Study shows reduction and fixation of previous patellar fracture. Fluoroscopy time given as 28.6 seconds. Impression: 1. Operative study showing reduction and fixation of patellar fracture. Diagnostic code #2
[2017-10-08] MEDS: Acetaminophen/oxyCODONE 325-5 MG Tab PO PRN ×3 (13:06→19:23)
[2017-10-08 19:42] VITALS: BP 135/75
--- NOTE | 2017-10-09 07:31 | OR ---
DATE OF OPERATION: 10/08/2017 SURGEON: Gurwinder Cervantes MD PREOPERATIVE DIAGNOSIS: Displaced fracture, mid-right patella. POSTOPERATIVE DIAGNOSIS: Displaced fracture, mid-right patella. ANESTHESIA: General. OPERATION PERFORMED: Open reduction and internal fixation with tension band wiring, right patella fracture. DESCRIPTION OF PROCEDURE: The patient was taken to the operative room in a supine position. She was placed under a general anesthesia. After adequate anesthesia, the operation then proceeded with prepping and draping the right lower extremity by standard technique. After prepping and draping, the area of the fracture was identified. A midline incision was placed beginning approximately 3 cm above the superior pole of the patella and extending distally to the inferior portion of the patella, penetrating through the skin and the subcutaneous tissues. The softer fascial tissues were reflected away from the superior surface of the patella. Patella fracture was identified. Once that was identified and isolated, the area was then thoroughly debrided. The fracture hematoma was removed. The surgical lavage was used to flush out the joint and also the patella fracture itself. Once debridement of the patella and the fracture site had been completed, the operation proceeded with reduction of the fracture using a tenaculum. Then, 2 parallel K-wires were placed through the patella beginning proximal to distal, securing both the proximal and distal fragment together. With that in place, the wire cerclage was then used, 1.25, first passing a wire under the 2 distal Steinmann pins that were present and then [id number] across the top with the tightening of the wire on the superolateral side of the upper pin. The wire was then tightened to hold the fracture. The tenaculum was removed. The fracture was solid. The knee was bent. No movement of the patella was noted. The operation then proceeded with completing the tension band wiring with the end of the Steinmann pins being bent and then impacted over the proximal portion of the wire so that it would not slip out. Once that was completed, fluoroscopy was used through the procedure to determine the adequacy of reduction and also the sites of the pin and also wire positioning. Once the final fluoroscopic evaluation of the knee was completed in AP and lateral, the operation proceeded with irrigation of the joint area. Deep tissues were closed with #1 Vicryl, subcutaneous tissues and softer small superficial fascial tissues were closed with 2-0 Vicryl, and the skin with skin sulma. The patient was then placed in a Amador dressing and knee immobilizer. She tolerated this procedure well and left the operative room in a stable condition to room for recovery. ESTIMATED BLOOD LOSS: MMODAL /[id number]
== END | disposition home or self-care (01) ==
LOC: JD.SDS 06:59
PROVIDERS: ATTEND Specialist
DX: S82.001A Unspecified fracture of right patella, initial encounter for closed fracture (principal); F41.9 Anxiety disorder, unspecified; E78.00 Pure hypercholesterolemia, unspecified; F17.210 Nicotine dependence, cigarettes, uncomplicated; E03.9 Hypothyroidism, unspecified; I10 Essential (primary) hypertension; G47.30 Sleep apnea, unspecified; K21.9 Gastro-esophageal reflux disease without esophagitis; W18.30XA Fall on same level, unspecified, initial encounter; Y99.0 Civilian activity done for income or pay; Z88.8 Allergy status to other drugs, medicaments and biological substances; Z91.013 Allergy to seafood; Z90.89 Acquired absence of other organs; Z90.49 Acquired absence of other specified parts of digestive tract; Z98.51 Tubal ligation status; Z79.899 Other long term (current) drug therapy
CPT/HCPCS: 27524; 76000; 94760; A9270; C1713; J0690; J1100; J1170; J2250; J2405; J2710; J3010; J7050; J7120; 01392; J2001; J2704

== ENCOUNTER → 2018-04-15 | Day surgery (SDC) | payer OTHER ==
[~2018-04-15] MED LIST changes: +Acetaminophen/oxyCODONE 325-5 MG Tab PO PRN; +Bupivacaine 0.5% 30 ML SDV ONE; -Cyclobenzaprine 10 MG Tab PO PRN; +HYDROmorphone 0.5 MG/0.5 ML Syringe IVPUSH ONE; -HYDROmorphone 0.5 MG/0.5 ML Syringe IVPUSH PRN; -HYDROmorphone 1 MG/ML Syringe ONE; +Lactated Ringers 1,000 ML IV SCH; -Lactated Ringers 1,000 ML ONE; +Lidocaine 1%/Sod Bicarbonate in NS 8.4% 1 ML Syringe IDERM PRN; -Lidocaine 1%/Sod Bicarbonate in NS 8.4% 1 ML Syringe IV PRN; -Neostigmine Methylsulfate 1 MG/ML 5 ML Syringe ONE; -Nicotine 14 MG/24 Hr Patch TRDERM ONE; -Rocuronium 50 MG/5 ML Vial ONE; -ePHEDrine/Normal Saline 25 MG/5 ML Syringe ONE; -fentaNYL 100 MCG/2 ML SDV ONE
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
--- NOTE | 2018-04-15 09:07 | PCM.POSTAN ---
POST ANESTHESIA ASSESSMENT - MENTAL STATUS Mental Status: Somnolent - VITAL SIGNS Pulse Rate: 73 SaO2: 92 Resp Rate: 12 Blood Pressure: 97/73 Temperature: 36.2 C - RESPIRATORY Respiratory Status: Respiratory Rate WNL, Airway Patent, O2 Saturation Stable, Supplemental Oxygen - CARDIOVASCULAR CV Status: Pulse Rate WNL, Blood Pressure Stable - GASTROINTESTINAL GI Status: No Symptoms - PAIN Pain Score: 0 - POST OP HYDRATION Hydration Status: Adequate & Stable
[2018-04-15 12:11] VITALS: BP 111/74
--- NOTE | 2018-04-15 15:42 | OR ---
DATE OF OPERATION: 04/15/2018 SURGEON: Gurwinder Cervantes MD PREOPERATIVE DIAGNOSIS: Fractured right patella with pin-wire fixation. POSTOPERATIVE DIAGNOSIS: Fractured right patella with pin-wire fixation. ANESTHESIA: General. OPERATION PERFORMED: Removal of hardware of the right patella. DESCRIPTION OF PROCEDURE: The patient was taken to the operative room in supine position and was placed under general anesthesia. After adequate anesthesia, the operation proceeded with prepping and draping of the right lower extremity by standard technique. After prepping and draping, the operation then proceeded with identification of the previous incision, and the area of the pins and wire fixation site of the superior pole patella. Using the old incision area, the new incision was carried through that area down into the subcutaneous tissues, which were then sharply dissected over to the pin-wire fixation site. Once that was identified and the wire was exposed along with the pins, the pins were removed in retrograde fashion and then the wire was cut and pulled removing the hardware in total. Once that was completed, the area was then thoroughly irrigated, palpated. The area of previous fracture was then palpated, and the patella was stressed, found to be stable and solid, then the operation proceeded with irrigation of the wound area. Subcutaneous tissues were closed with 2-0 Vicryl and skin with skin sulma. The patient tolerated this whole procedure well. She left the operating room in stable condition to room for recovery. ESTIMATED BLOOD LOSS: MMODAL /[id number]
== END | disposition home or self-care (01) ==
LOC: JD.SDS 07:21
PROVIDERS: ATTEND Specialist
DX: S82.001D Unspecified fracture of right patella, subsequent encounter for closed fracture with routine healing (principal); E03.9 Hypothyroidism, unspecified; E78.5 Hyperlipidemia, unspecified; G47.33 Obstructive sleep apnea (adult) (pediatric); Z99.89 Dependence on other enabling machines and devices; I10 Essential (primary) hypertension; K21.9 Gastro-esophageal reflux disease without esophagitis; F32.9 Major depressive disorder, single episode, unspecified; F41.9 Anxiety disorder, unspecified; F17.210 Nicotine dependence, cigarettes, uncomplicated; Z79.899 Other long term (current) drug therapy; Z88.8 Allergy status to other drugs, medicaments and biological substances; Z91.013 Allergy to seafood; X58.XXXD Exposure to other specified factors, subsequent encounter
CPT/HCPCS: 20680; A9270; J0690; J1100; J2250; J2405; J2704; J3010; J3490; J7120; J2001

== ENCOUNTER → 2019-11-29 | Day surgery (SDC) | payer OTHER ==
[~2019-11-29] MED LIST changes: -Acetaminophen/oxyCODONE 325-5 MG Tab PO PRN; +Albuterol 0.083% 2.5 MG/3 ML Neb Soln NEB ONE; -Bupivacaine 0.5% 30 ML SDV ONE; -Bupivacaine 0.5%/EPINEPHrine 1:200,000 50 ML MDV ONE; -HYDROmorphone 0.5 MG/0.5 ML Syringe IVPUSH ONE; -Ketamine 500 mg/10 ML MDV ONE; -Ketorolac 30 MG/ML SDV IVPUSH PRN; +Ketorolac 30 MG/ML SDV ONE; +Lactated Ringers 0 ML ONE; +Lidocaine 1% 0 ML ONE; -Lidocaine 1% 4 ML ONE; -Meperidine PF 50 MG/ML Syringe IVPUSH PRN; -Morphine 15 MG Tab.ER PO SCH; -Ondansetron 4 MG/2 ML SDV IVPUSH PRN; +Rocuronium 50 MG/5 ML Vial ONE; -diphenhydrAMINE 50 MG/ML SDV IVPUSH PRN; -fentaNYL 100 MCG/2 ML SDV IVPUSH PRN
[2019-11-29 11:48] VITALS: PULSE 72
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
[2019-11-29 12:58] VITALS: BP 120/89
== END ==
LOC: JD.SDS 09:38
PROVIDERS: ATTEND Surgery
DX: K42.9 Umbilical hernia without obstruction or gangrene (principal); Z53.8 Procedure and treatment not carried out for other reasons
CPT/HCPCS: 36415; 80048; 85025; 94640; J7120; J0690; J1100; J1885; J2001; J2250; J2405; J2704; J3010

== ENCOUNTER 2019-12-06 19:48 | Emergency (ER) | payer OTHER ==
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
[2019-12-06] MEDS ORDERED: Aspirin 81 MG Tab.Chew PO ONE (20:38)
--- NOTE | 2019-12-06 21:14 | CR ---
Chest: 2 views of the chest were obtained. Comparison: Prior chest x-ray of 11/30/19. Heart size is normal. Mild tortuosity of the thoracic aorta again seen. Lungs are clear with no acute parenchymal change. Bony structures show nothing acute. Impression: 1. Nothing acute is seen on 2 view chest x-ray. Diagnostic code #2 This report was dictated in [place] Standard Time
[2019-12-06] MEDS ORDERED: Potassium Chloride 20 MEQ Tab.ER PO ONE (22:02)
[2019-12-06] MEDS ORDERED: LORazepam 1 MG Tab PO ONE (22:19)
[2019-12-06] MEDS ORDERED: Metoprolol Tartrate 50 MG Tab ONE (22:27)
[2019-12-06] MEDS ORDERED: Metoprolol Tartrate 50 MG Tab PO ONE (22:30)
[2019-12-06 22:33] VITALS: BP 127/87; PULSE 83
[2019-12-07] MEDS ORDERED: Metoprolol Tartrate 100 MG Tab PO ONE (22:02)
== END 2019-12-06 23:32 | disposition home or self-care (01) ==
LOC: JD.ED 19:48
DX: R07.89 Other chest pain (principal); F41.9 Anxiety disorder, unspecified; I10 Essential (primary) hypertension; E78.00 Pure hypercholesterolemia, unspecified; F17.210 Nicotine dependence, cigarettes, uncomplicated; Z91.013 Allergy to seafood; Z88.8 Allergy status to other drugs, medicaments and biological substances; Z79.899 Other long term (current) drug therapy
CPT/HCPCS: 36415; 71046; 80053; 84484; 85025; 93005; 99285; A9270; 93010; 99284

== ENCOUNTER 2019-12-18 18:53 | Emergency (ER) | payer OTHER ==
[2019-12-18] MEDS ORDERED: HYDROmorphone 1 MG/ML Syringe IVPUSH ONE (19:16)
[2019-12-18] MEDS ORDERED: Metoclopramide 10 MG/2 ML SDV IVPUSH ONE (19:16)
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
[2019-12-18] MEDS ORDERED: Dextrose 5%-0.9% NaCl 1,000 ML IV SCH (19:30)
[2019-12-18 21:11] VITALS: BP 100/65; PULSE 68
--- NOTE | 2019-12-19 07:37 | CT ---
CT abdomen and pelvis Technique: Multiple axial sections were obtained from above the dome of the diaphragm inferiorly through the pubic symphysis. Intravenous and oral contrast not utilized. Findings: Hernia is noted above the umbilicus region to the left of midline. Minimal increased density within the fat is seen and difficult to exclude minimal compromise of this fat within the hernia. Abdominal wall opening of this hernia measures 1.7 cm. Small fat-containing hernia within the umbilicus is noted. Visualized lung bases shows slight atelectasis. Focal eventration of fat is seen within the upper medial right hemidiaphragm. Liver shows no focal parenchymal abnormality. Spleen appears within normal limits. Previous stomach surgery is noted. Low density nodule is noted within the left adrenal gland which shows several negative Hounsfield unit measurements which most likely represents a benign adenoma measuring approximately 1.9 cm in size. Slightly dilated CBD and main pancreatic duct. This finding is most likely related to previous cholecystectomy. Surgical clips are noted from prior cholecystectomy. Pancreas is within normal limits. Aorta shows no aneurysm with mild ectasia. Atherosclerotic change seen within the aortoiliac arteries. No retroperitoneal adenopathy is seen. No pelvic mass or adenopathy is seen. No free fluid or inflammatory change is appreciated. Appendix is seen which is normal in size. Sigmoid diverticulosis is noted without findings of diverticulitis. Diverticuli are also scattered within the left colon. Bone window settings were reviewed. No acute osseous finding is seen. Impression: 1. Anterior abdominal wall hernia to the left of midline and above the umbilicus. Minimal increased density within the fat is seen and minimal compromise upon this hernia is difficult to exclude. Please correlate with the patient's symptoms. 2. Other findings as noted above believed to be nonacute. Diagnostic code #3 This report was dictated in MDT I agree with preliminary report from [facility], finalized on 12/18/19, 9:23 PM Central Time
== END 2019-12-18 21:13 | disposition home or self-care (01) ==
LOC: JD.ED 18:53
DX: K43.9 Ventral hernia without obstruction or gangrene (principal); I10 Essential (primary) hypertension; E78.00 Pure hypercholesterolemia, unspecified; F41.9 Anxiety disorder, unspecified; Z90.49 Acquired absence of other specified parts of digestive tract; F17.210 Nicotine dependence, cigarettes, uncomplicated; Z91.013 Allergy to seafood; Z88.8 Allergy status to other drugs, medicaments and biological substances; Z79.899 Other long term (current) drug therapy
CPT/HCPCS: 36415; 74176; 80053; 82150; 82977; 83605; 85025; 85610; 85730; 86140; 96361; 96374; 96375; 99284; J1170; J2765; J7042

== ENCOUNTER 2021-05-02 06:06 | Day surgery (SDC) | payer OTHER ==
[~2021-05-02 06:06] MED LIST changes: +Acetaminophen 325 MG Tab PO SCH; -Albuterol 0.083% 2.5 MG/3 ML Neb Soln NEB ONE; -Dexamethasone 4 MG/ML 5 ML MDV ONE; -Ketorolac 30 MG/ML SDV ONE; -Lactated Ringers 0 ML ONE; -Lidocaine 1% 0 ML ONE; -Midazolam 1 MG/ML 2 ML SDV ONE; -Ondansetron 4 MG/2 ML SDV ONE; +Pregabalin 25 MG Cap PO SCH; -Propofol 200 MG/20 ML SDV ONE; -Rocuronium 50 MG/5 ML Vial ONE; -ceFAZolin 1 GM Vial ONE; -fentaNYL 250 MCG/5 ML SDV ONE; +oxyCODONE ER 10 MG TAB.ER PO SCH
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
[2021-05-02] MEDS ORDERED: Ropivacaine 0.5% 5 MG/ML 30 ML SDV ONE (06:53)
[2021-05-02] MEDS ORDERED: Dexmedetomidine 200 MCG/2 ML SDV ONE (06:53)
[2021-05-02] MEDS ORDERED: Propofol 200 MG/20 ML SDV ONE ×2 (06:56→08:06)
[2021-05-02] MEDS ORDERED: Midazolam 1 MG/ML 2 ML SDV ONE (06:57)
[2021-05-02] MEDS ORDERED: fentaNYL 100 MCG/2 ML SDV ONE (06:57)
[2021-05-02] MEDS ORDERED: ceFAZolin 1 GM Vial ONE (06:57)
[2021-05-02] MEDS ORDERED: Dexamethasone 4 MG/ML 5 ML MDV ONE (07:02)
[2021-05-02] MEDS ORDERED: EPINEPHrine 1 MG/ML SDV ONE (07:21)
[2021-05-02] MEDS ORDERED: Lactated Ringers 1,000 ML ONE ×2 (07:34→08:24)
[2021-05-02] MEDS ORDERED: Phenylephrine 1% 10 MG/ML SDV ONE (07:43)
[2021-05-02] MEDS: Vancomycin 1 GM SDV ONE ×2 (08:01→08:23)
[2021-05-02] MEDS: Morphine 8 MG, EPINEPHrine 0.3 MG, Cefuroxime 750 MG, Ketorolac 30 MG, Sodium Chloride ... PRN ×10 (08:02→08:15)
[2021-05-02] MEDS: fentaNYL 100 MCG/2 ML SDV IVPUSH PRN ×2 (08:48→09:38)
[2021-05-02] MEDS: HYDROmorphone 0.5 MG/0.5 ML Syringe IVPUSH PRN ×2 (08:59→09:17)
--- NOTE | 2021-05-02 09:39 | PCM.POSTAN ---
POST ANESTHESIA ASSESSMENT - MENTAL STATUS Mental Status: Alert, Oriented - VITAL SIGNS Vital Signs: Postoperative Vital Signs 08:41 am 131/89 80 HR 16 RR 97% 97.6 - RESPIRATORY Respiratory Status: Respiratory Rate WNL, Airway Patent, O2 Saturation Stable, Supplemental Oxygen - CARDIOVASCULAR CV Status: Pulse Rate WNL, Blood Pressure Stable - GASTROINTESTINAL GI Status: No Symptoms - PAIN Pain Score: 8 (ACB is being done, Fentanyl given) - POST OP HYDRATION Hydration Status: Adequate & Stable
--- NOTE | 2021-05-02 09:42 | PCM.PRNOTE ---
- Free Text/Narrative Note: Postoperative regional pain control requested by surgeon. Pre-op Dx: Rt knee osteoarthritis. Post-op Rx: Total Rt knee arthroplasty. Procedure: Rt Adductor canal block with U/S guidance Requesting physician: Dr. Trent Aguilar Risks and benefits discussed with the patient preoperatively including infection, bleeding, incomplete or failed block, possible nerve damage, local anesthetic toxicity. Permit signed. Patient after spinal anesthesia post surgery in PACU, stable , alert and awake. Time out performed. Right mid-thigh was prepped with Chloraprep x 1 and allowed to dry. Under aseptic technique, the right femoral artery and sartorius muscle were identified under ultrasound prior to needle insertion. 4" Stimuplex needle #22 G was inserted under US guidance. Under direct visualization of needle tip the injection of 0.5% Ropivacaine with 1:200k epinephrine, with 6 mg of Dexamethasone and 40 mcg of Dexmedetomidine ,total of 30 mls in divided doses, maintaining negative aspiration was completed without problems. No local anesthetic toxicity was noted. Patient is awake, stable and tolerated the procedure well. Time: 08:49 - 08:54 Please see attached U/S pictures.
--- NOTE | 2021-05-02 09:53 | CR ---
Right knee: AP and lateral views of the right knee were obtained. Comparison: Prior CT right knee study of 02/20/21. Knee prosthesis is seen. Patellar prosthesis is also noted. Components appear aligned. Underlying bony structures show nothing else acute. Soft tissue air is noted from the surgical procedure. Impression: 1. Satisfactory postop radiographic appearance of recently placed right knee prostheses. Diagnostic code #2
[2021-05-02] MEDS ORDERED: oxyCODONE 5 MG Tab PO PRN (10:32)
[2021-05-02] MEDS ORDERED: Cyclobenzaprine 10 MG Tab PO SCH (10:45)
--- NOTE | 2021-05-02 14:11 | PCM48HPAN ---
Post Anesthesia Note - EVALUATION WITHIN 48HRS OF ANESTHETIC Vital Signs in Normal Range: Yes Patient Participated in Evaluation: Yes Respiratory Function Stable: Yes Airway Patent: Yes Cardiovascular Function Stable: Yes Hydration Status Stable: Yes Pain Control Satisfactory: Yes Nausea and Vomiting Control Satisfactory: Yes Mental Status Recovered: Yes Vital Signs: Last Vital Signs Temp 97.6 F 05/02/21 10:00 Pulse 64 05/02/21 10:00 Resp 10 L 05/02/21 10:00 BP 127/83 05/02/21 10:00 Pulse Ox 94 L 05/02/21 10:00 - COMMENTS/OBSERVATIONS Free Text/Narrative:: Patient is still complaining on residual numbness in her perineal area an right buttock. No other sensory / motor deficits noted. Patient received explanation about the the slow resolution of spinal block and was offered to stay under observation until the symptoms resolve completely or to go home and to contact if the numbness doesn't resolve within the next 24 hours. Patient has no problem ambulating with the walker and passed her urine in the bathroom prior to discharge.
[2021-05-02 14:53] VITALS: BP 142/95; PULSE 79
--- NOTE | 2021-05-15 07:52 | PCM.OPNOTE ---
- General Post-Op/Procedure Note Date of Surgery/Procedure: 05/02/21 Operative Procedure(s): right total knee arthroplasty with jessika v[employer]i robotics Pre Op Diagnosis: right knee osteoarthrosis Post-Op Diagnosis: Same Anesthesia Technique: Local, MAC, Spinal Primary Surgeon: Trent Becerra Anesthesia Provider: Demar Curtis Caddie: Ame Sheets Caddie: Brittany Medina EBL in mLs: 5 Complications: None Condition: Good Free Text/Narrative:: 11/28 9mm 32x10 cemented
--- NOTE | 2021-05-15 08:32 | OR ---
DATE OF OPERATION: 05/02/2021 SURGEON: Trent Becerra MD OPERATION PERFORMED: Right total knee arthroplasty with [employer] robot[employer]. PREOPERATIVE DIAGNOSIS: Right knee osteoarthrosis. POSTOPERATIVE DIAGNOSIS: Right knee osteoarthrosis. ANESTHESIA: Local MAC with spinal. ANESTHESIA PROVIDER: Phuong Elias. SCHOOL BUS DRIVER/CUSTODIAN: Ame Sheets PA-C; and Brittany Medina LPN. ESTIMATED BLOOD LOSS: 5 mL. COMPLICATIONS: None. CONDITION: Stable. IMPLANTS: 1. Napa size 3 cemented PS femur. 2. Tanja size 3 cemented [place] tibial baseplate. 3. Tanja size 3 9 mm PS X3 polyethylene. 4. Tanja size 32 x 10 mm cemented asymmetric patella. DESCRIPTION OF PROCEDURE: The patient was identified in the preop holding area. Proper site was marked and identified by the surgeon. The patient was taken back to the operating theater where after adequate anesthesia, the patient's right lower extremity had a nonsterile tourniquet applied and it was sterilely prepped and draped in the usual sterile fashion. OR time-out was performed. The patient received 2 g IV Ancef. Leg lizama was then applied to the right lower extremity. At this time, the right lower extremity was exsanguinated. Tourniquet was insufflated to 250 mmHg . Standard anterior incision was made. Medial parapatellar arthrotomy was created. Deep fibers of the MCL were raised as well as anterior fat pad was resected. Attention was turned to the patella. Patella measured 23 mm; it was resected to a 13 mm for a 32 x 10 mm patella. Drill holes were then drilled. Attention was then turned to the femur. Two 4.0 pins were placed intra- incisionally for the Tanja Casey robotic array and then 2 more were placed on the tibia 3 fingerbreadths below the tibial tubercle. The Nap[employer] robotic arrays were placed on both the femur and the tibia then at this time as well as checkpoints on the femur and tibia. Hip center rotation was then obtained. The medial and lateral malleoli were marked. At this time, 40 points were obtained off the femur and the tibia for the [employer] Casey robotic plan. The patient's knee was brought to full extension. Varus and valgus stresses were applied and then into 90 degrees of flexion with a curved osteotome. Varus and valgus stresses were applied. At this time, Omni[employer] robotic plan was done to 18 mm gaps in both flexion and extension. Tanja Mako robotic arm was then brought in. A straight saw blade was then used for the tibial cut, the anterior femoral cut, the anterior chamfer cut, and the posterior femoral cut. All bony fragments were removed. Saw blade was then switched out and the distal femoral cut as well as the posterior chamfer cut was completed. At this time, medial and lateral menisci were resected as well as any posterior osteophytes. A size 3 mm trial tibia was then placed, size 3 mm trial femur was placed, and a size 3 9 mm polyethylene trial liner was placed. The patient's knee was brought to full extension and flexion. Varus and valgus stresses were applied, was found to be stable with no instability. No signs of liftoff or loosening were noted. At this time, box cut was completed on the femur. The pins were removed from the femur and the tibia as well as the arrays and the checkpoints. Cement was mixed on the back table. All cut surfaces were irrigated with pulse lavage irrigation with Ancef and then completely dried. Once the cement was ready, the Napa size 3 mm cemented [place] tibial base plate having been previously stamped and drilled, was then cemented in place on the tibia. The Tanja size 3 mm cemented femur was cemented into place. The patient had a Tanja size 3 9 mm polyethylene insert placed. The patient's knee was brought to full extension. Excess cement was removed. A Napa size 32 x 10 mm cemented asymmetric patella was then cemented into place. 1 L of pulse lavage irrigation with Ancef was irrigated through the knee along with 400 mL of IrriSept irrigation. Periarticular injection was completed. Topical tranexamic acid and vancomycin powder were applied. A #2 barbed suture was used for closure of the medial parapatellar arthrotomy in flexion. 2-0 Vicryl and Stratafix were used for subcutaneous closure. Prineo was used for cutaneous closure. The patient had a sterile soft dressing applied. The tibial holes were closed with nylon, and this was also covered with a sterile soft dressing. The patient had an KENROY wrap applied and was sent to PACU in stable condition. The patient tolerated the procedure well. MMODAL /[id number]
== END 2021-05-02 14:07 | disposition home or self-care (01) ==
LOC: JD.SDS 06:06
PROVIDERS: ATTEND Orthopaedic Surgery
DX: M17.31 Unilateral post-traumatic osteoarthritis, right knee (principal); M25.761 Osteophyte, right knee; I10 Essential (primary) hypertension; E78.00 Pure hypercholesterolemia, unspecified; E03.9 Hypothyroidism, unspecified; G47.33 Obstructive sleep apnea (adult) (pediatric); F17.210 Nicotine dependence, cigarettes, uncomplicated; Z88.8 Allergy status to other drugs, medicaments and biological substances; Z91.013 Allergy to seafood; Z79.899 Other long term (current) drug therapy
CPT/HCPCS: 27447; 73560; 97110; 97116; 97161; A9270; C1713; C1776; J0171; J0690; J0697; J1100; J1170; J1885; J2250; J2270; J2370; J2704; J2795; J3010; J3370; J7120; 01402